=== PATIENT | female | born 1970 | race Caucasian/White ===

== ENCOUNTER → 2020-07-22 | Day surgery (SDC) | payer OTHER ==
[~2020-07-22] MED LIST: CENTRUM ADULTS1 EACH PO; CITRACAL + D M1 EACH PO; MAGNESIUM100 MG PO; TURMERIC PO
[2020-07-22 07:33] LABS: HCT 50.3 % (37.0-47.0); HGB 16.3 g/dl (12.5-16.0); MCH 32.5 pg (25.0-31.0); MCHC 32.4 g/dL (32.0-36.0); MCV 100.4 fL (78.0-100.0); MPV 9.1 fL (6.0-9.5); RBC 5.01 M/uL (4.20-5.40); WBC 9.3 K/uL (4.0-10.5)
[2020-07-22 07:50] LABS: ALBUMIN 4.6 g/dL (3.4-5.0); BILIRUBIN - TOTAL 0.8 mg/dL (0.2-1.0); GLOBULIN (CALCULATION) 4.3 g/dL; POTASSIUM 3.7 mmol/L (3.5-5.1); TOTAL PROTEIN 8.9 g/dL (6.4-8.2)
== END | disposition home or self-care (01) ==
LOC: FAS 06:50
PROVIDERS: Surgery
DX: Z12.11 Encounter for screening for malignant neoplasm of colon (principal); Q43.8 Other specified congenital malformations of intestine; K63.89 Other specified diseases of intestine; Z79.899 Other long term (current) drug therapy
CPT/HCPCS: 36415; 80053; 84703; 93005; J1610; J2250; J2704; J7120